=== PATIENT | male | born 2000 | race Caucasian/White ===

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

== ENCOUNTER 2021-10-06 08:28 | Day surgery (SDC) | payer MEDICARE, MEDICAID ==
[~2021-10-06 08:28] MED LIST changes: +ACET600C PO; +ALPH600C3 PO; +ASCO-336 PO; +CAT1P TOP; +CHOL100025 PO; +COPP2CAP PO; +D-MA1POW PO; +FISH1CAP15 PO; +LEVO500T86 PO; +MELA3TAB41 PO; +METO-411 PO; +SELE200T25 PO; +SENN-145 PO; +SEVE800T28 PO; +VITA80008 PO; +ZINC50TA67 PO
[2021-10-06] MEDS ORDERED: LIDOcaine 1% 30ml preserv. free vial SQ STA (08:38)
[2021-10-06] MEDS ORDERED: albumin 25% 100mL bottle x 1 IV PRN (09:00)
[2021-10-06 10:14] VITALS: BP 127/81
[2021-10-06 10:15] VITALS: BP 141/100
== END 2021-10-06 10:40 | disposition home or self-care (01) ==
LOC: SSTAY O 08:28
PROVIDERS: ATTEND Radiology Vascular & Interventional Radiology
DX: R18.8 Other ascites (principal); Z53.8 Procedure and treatment not carried out for other reasons; I12.0 Hypertensive chronic kidney disease with stage 5 chronic kidney disease or end stage renal disease; N18.6 End stage renal disease; Q05.9 Spina bifida, unspecified; M86.8X8 Other osteomyelitis, other site; Z99.2 Dependence on renal dialysis; Z98.890 Other specified postprocedural states; Z88.8 Allergy status to other drugs, medicaments and biological substances; Z91.040 Latex allergy status; Z88.1 Allergy status to other antibiotic agents; Z79.899 Other long term (current) drug therapy
CPT/HCPCS: 76705